=== PATIENT | female | born 1950 | race Caucasian/White ===

== ENCOUNTER 2020-02-09 00:38 | Observation (INO) ==
[2020-02-09] MEDS ORDERED: SODIUM CHLORIDE 0.9% 500 ML IV STA (01:21)
[2020-02-09] MEDS ORDERED: levETIRAcetam 500 MG/5 ML VIAL IV ONE ×2 (01:29→01:30)
[2020-02-09 02:06] LABS: Basophils # 0.1 10*3/uL (0.0-0.2); Eosinophils # 0.1 10*3/uL (0.0-0.87); Eosinophils % 1.7 % (0.00-10.9); Hematocrit 39.1 VOL% (35.7-47.0); Hemoglobin 13.1 GM/DL (12.0-16.0); Immature Granulocytes % 0.3 %; Immature Granulocytes Absolute 0.02 #; Lymphocytes # 1.6 10*3/uL (1.4-4.0); Lymphocytes % 23.1 % (21.3-54.2); Mean Corpuscular HGB Conc 33.5 GM/DL (32-36); Mean Corpuscular Volume 94.9 FL (87-102); Mean Platelet Volume 10.2 FL (9.6-12.0); Monocytes % 8.4 % (1.7-12.7); Neutrophils % 65.5 % (38.7-73.9); Platelet Count 225 T/CUMM (130-400); Red Blood Count 4.12 MC/CUMM (3.8-5.5); Red Cell Distribution Width 12.1 % (9.3-17.3); White Blood Count 7.1 T/CUMM (4-12)
[2020-02-09 02:42] LABS: Bacteria,Urine Occasional /HPF (Few); Bilirubin,Urine Negative (Negative); Blood, Urine Negative (Negative); Glucose,Urine (UA) >=500 mg/dL (Negative); Ketones,Urine 5 mg/dL (Negative); Mucus,Urine Occasional /LPF (Occasional); Nitrite,Urine Negative (Negative); Protein,Urine Negative; RBC,Urine 2 /HPF (0-4); Squamous Epithelial Cell,Urine Occasional /HPF (0-10); Urine Appearance CLEAR (Clear); Urine Color Yellow (Yellow); Urine Specific Gravity 1.012 (1.001-1.035); Urine Urobilinogen < 2.0 EU/DL (0.2-1.0); WBC,Urine 9 /HPF (0-6)
[2020-02-09 02:44] LABS: Barbiturates Screen,Urine Negative (Negative); Benzodiazepines Screen,Urine Negative (Negative); Cannabinoid Screen,Urine Negative (Negative); Opiate Screen,Urine Negative (Negative); Phencyclidine Screen,Urine Negative (Negative)
[2020-02-09 02:55] LABS: Alanine Aminotransferase < 9 U/L (13-56); Albumin 3.6 G/DL (3.4-5.0); Alkaline Phosphatase 27 U/L (45-117); Aspartate Amino Transferase 16 U/L (0-37); Bilirubin,Total < 0.39 MG/DL (0.2-1.0); Blood Urea Nitrogen 12 MG/DL (7-18); Estimated Glom Filtration Rate 75 ML/MIN; Glucose 167 MG/DL (74-106); Total Protein 6.5 G/DL (6.4-8.3)
[2020-02-09 02:56] LABS: Osmolality,Calculated 284.3 MOS/KG (273-304)
[2020-02-09] MEDS ORDERED: cefTRIAXone 1,000 MG in SODIUM CHLORIDE 0.9% 100 ML IV STA (02:59)
[2020-02-09] MEDS ORDERED: ONDANSETRON 4 MG/2 ML VIAL IV PRN (06:38)
[2020-02-09] MEDS ORDERED: SODIUM CHLORIDE 0.9% 1,000 ML IV SCH (06:38)
[2020-02-09] MEDS ORDERED: ACETAMINOPHEN 325 MG TABLET PO PRN (06:38)
[2020-02-09] MEDS ORDERED: DEXTROSE 50% 25 GM/50 ML VIAL IV PRN (06:38)
[2020-02-09] MEDS ORDERED: ALPRAZolam 0.25 MG TABLET PO PRN (07:38)
[2020-02-09] MEDS ORDERED: ERGOCALCIFEROL 50,000 UNIT CAPSULE PO SCH (09:00)
[2020-02-09] MEDS: CALCIUM (CARBONATE) 500 MG TABLET PO SCH (09:33)
[2020-02-09] MEDS: DOCUSATE SODIUM 100 MG CAPSULE PO SCH ×3 (09:33→20:28)
[2020-02-09] MEDS: CITALOPRAM 20 MG TABLET PO SCH (09:33)
[2020-02-09] MEDS: MAGNESIUM CHLORIDE 64 MG TABLET PO SCH (09:33)
[2020-02-09] MEDS: PANTOPRAZOLE 40 MG TABLET PO SCH (09:33)
[2020-02-09] MEDS: CARBIDOPA/LEVODOPA 25-100 MG TABLET PO SCH ×4 (09:34→17:05)
[2020-02-09] MEDS: levETIRAcetam 500 MG TABLET PO SCH (20:28)
[2020-02-09] MEDS ORDERED: traZODone 50 MG TABLET PO PRN (21:00)
[2020-02-09] MEDS ORDERED: CARBIDOPA LEVODOPA PO SCH (21:00)
[2020-02-10 05:38] LABS: Basophils # 0.1 10*3/uL (0.0-0.2); Basophils % 0.9 % (0.0-0.8); Eosinophils # 0.1 10*3/uL (0.0-0.87); Eosinophils % 2.1 % (0.00-10.9); Hematocrit 36.4 VOL% (35.7-47.0); Hemoglobin 12.4 GM/DL (12.0-16.0); Immature Granulocytes % 0.6 %; Immature Granulocytes Absolute 0.03 #; Lymphocytes # 1.6 10*3/uL (1.4-4.0); Lymphocytes % 29.7 % (21.3-54.2); Mean Corpuscular HGB Conc 34.1 GM/DL (32-36); Mean Corpuscular Volume 92.9 FL (87-102); Monocytes % 7.8 % (1.7-12.7); Neutrophils % 58.9 % (38.7-73.9); Platelet Count 209 T/CUMM (130-400); Red Blood Count 3.92 MC/CUMM (3.8-5.5); Red Cell Distribution Width 12.2 % (9.3-17.3); White Blood Count 5.3 T/CUMM (4-12)
[2020-02-10] MEDS: CARBIDOPA/LEVODOPA 25-100 MG TABLET PO SCH ×2 (05:39→08:21)
[2020-02-10] MEDS ORDERED: LEVOTHYROXINE 125 MCG TABLET PO SCH (06:00)
[2020-02-10 06:03] LABS: Alanine Aminotransferase < 9 U/L (13-56); Albumin 3.2 G/DL (3.4-5.0); Alkaline Phosphatase 24 U/L (45-117); Aspartate Amino Transferase 14 U/L (0-37); Blood Urea Nitrogen 8 MG/DL (7-18); Calcium 8.9 MG/DL (8.5-10.1); Estimated Glom Filtration Rate 92 ML/MIN; Glucose 96 MG/DL (74-106); Osmolality,Calculated 280.1 MOS/KG (273-304); Total Protein 6.3 G/DL (6.4-8.3)
[2020-02-10] MEDS ORDERED: cefTRIAXone 1,000 MG in SYRINGE 1 EACH IV SCH (09:00)
[2020-02-10] MEDS: PANTOPRAZOLE 40 MG TABLET PO SCH (09:25)
[2020-02-10] MEDS: MAGNESIUM CHLORIDE 64 MG TABLET PO SCH (09:25)
[2020-02-10] MEDS: CALCIUM (CARBONATE) 500 MG TABLET PO SCH (09:26)
[2020-02-10] MEDS: DOCUSATE SODIUM 100 MG CAPSULE PO SCH (09:26)
[2020-02-10] MEDS: levETIRAcetam 500 MG TABLET PO SCH (09:26)
[2020-02-10] MEDS: CITALOPRAM 20 MG TABLET PO SCH (09:26)
[2020-02-10 12:35] VITALS: BP 118/50
== END 2020-02-10 10:35 | disposition home or self-care (01) ==
LOC: EDBD → EDUNIT# → N.EDINP 00:38 → N.ED 00:38 → N.3E 05:25
PROVIDERS: ADMIT Internal Medicine; ATTEND Internal Medicine

== ENCOUNTER 2020-02-19 12:11 | Inpatient (IN) ==
[2020-02-19 13:16] LABS: Basophils # 0.1 10*3/uL (0.0-0.2); Basophils % 0.5 % (0.0-0.8); Eosinophils # 0.2 10*3/uL (0.0-0.87); Eosinophils % 1.6 % (0.00-10.9); Hematocrit 38.7 VOL% (35.7-47.0); Hemoglobin 13.2 GM/DL (12.0-16.0); Immature Granulocytes % 0.6 %; Immature Granulocytes Absolute 0.06 #; Lymphocytes # 1.2 10*3/uL (1.4-4.0); Lymphocytes % 12.7 % (21.3-54.2); Mean Corpuscular HGB Conc 34.1 GM/DL (32-36); Mean Corpuscular Volume 93.7 FL (87-102); Mean Platelet Volume 10.8 FL (9.6-12.0); Monocytes % 9.8 % (1.7-12.7); Neutrophils % 74.8 % (38.7-73.9); Platelet Count 240 T/CUMM (130-400); Red Blood Count 4.13 MC/CUMM (3.8-5.5); Red Cell Distribution Width 12.1 % (9.3-17.3); White Blood Count 9.3 T/CUMM (4-12)
[2020-02-19 13:22] LABS: Alanine Aminotransferase < 9 U/L (13-56); Albumin 3.4 G/DL (3.4-5.0); Alkaline Phosphatase 26 U/L (45-117); Aspartate Amino Transferase 24 U/L (0-37); Blood Urea Nitrogen 18 MG/DL (7-18); Calcium 9.2 MG/DL (8.5-10.1); Estimated Glom Filtration Rate 90 ML/MIN; Glucose 118 MG/DL (74-106); Osmolality,Calculated 281.4 MOS/KG (273-304); Total Protein 6.8 G/DL (6.4-8.3)
[2020-02-19 13:23] LABS: Bilirubin,Urine Small mg/dL (Negative); Blood, Urine Negative (Negative); Glucose,Urine (UA) Negative (Negative); Hyaline Casts,Urine 6 /LPF (0-3); Ketones,Urine 20 mg/dL (Negative); Mucus,Urine Moderate /LPF (Occasional); Nitrite,Urine Negative (Negative); Protein,Urine 30 MG/DL; RBC,Urine 42 /HPF (0-4); Squamous Epithelial Cell,Urine Occasional /HPF (0-10); Urine Appearance CLEAR (Clear); Urine Color Amber (Yellow); Urine Specific Gravity 1.035 (1.001-1.035); Urine Urobilinogen < 2.0 EU/DL (0.2-1.0); WBC,Urine 3 /HPF (0-6)
[2020-02-19 13:47] LABS: Free T4 (Free Thyroxine) 1.5 NG/DL (0.76-1.46); Thyroid Stimulating Hormone 1.24 uIU/ml (0.358-3.74)
[2020-02-19] MEDS ORDERED: ONDANSETRON 4 MG/2 ML VIAL IV PRN (16:05)
[2020-02-19] MEDS ORDERED: NALOXONE 0.4 MG/ML VIAL IV PRN (16:05)
[2020-02-19] MEDS ORDERED: ALBUTEROL/IPRATROPIUM 3 ML NEB RESP TX PRN (16:05)
[2020-02-19] MEDS ORDERED: ACETAMINOPHEN 325 MG TABLET PO PRN (16:05)
[2020-02-19] MEDS ORDERED: HYDROmorphone PCA 30 MG/30 ML SYRINGE IV SCH (16:30)
[2020-02-19] MEDS ORDERED: traZODone 50 MG TABLET PO PRN (18:04)
[2020-02-19] MEDS: LACTATED RINGERS 1,000 ML IV SCH (18:32)
[2020-02-19] MEDS: CARBIDOPA/LEVODOPA 25-100 MG TABLET PO SCH (18:53)
[2020-02-19] MEDS: NON-FORMULARY MEDICATION (Carbidopa-Levodopa-Entacapone [Stalevo 150] 37.5-150-200 mg tabl PO SCH ×2 (18:53→21:03)
[2020-02-19] MEDS: KETOROLAC 15 MG/1 ML VIAL IV SCH (18:53)
[2020-02-19] MEDS: CITALOPRAM 20 MG TABLET PO SCH (20:55)
[2020-02-19] MEDS: levETIRAcetam 500 MG TABLET PO SCH (20:55)
[2020-02-19] MEDS: CARBIDOPA LEVODOPA PO SCH (20:56)
[2020-02-20] MEDS: KETOROLAC 15 MG/1 ML VIAL IV SCH ×5 (00:02→23:33)
[2020-02-20 05:36] LABS: Basophils # 0.1 10*3/uL (0.0-0.2); Basophils % 0.7 % (0.0-0.8); Eosinophils # 0.3 10*3/uL (0.0-0.87); Eosinophils % 3.7 % (0.00-10.9); Hematocrit 32.9 VOL% (35.7-47.0); Hemoglobin 11.4 GM/DL (12.0-16.0); Immature Granulocytes % 0.5 %; Immature Granulocytes Absolute 0.04 #; Lymphocytes % 13.1 % (21.3-54.2); Mean Corpuscular HGB Conc 34.7 GM/DL (32-36); Mean Corpuscular Volume 94.3 FL (87-102); Mean Platelet Volume 10.4 FL (9.6-12.0); Monocytes % 9.3 % (1.7-12.7); Neutrophils % 72.7 % (38.7-73.9); Platelet Count 226 T/CUMM (130-400); Red Blood Count 3.49 MC/CUMM (3.8-5.5); Red Cell Distribution Width 12.2 % (9.3-17.3); White Blood Count 7.5 T/CUMM (4-12)
[2020-02-20] MEDS: NON-FORMULARY MEDICATION (Carbidopa-Levodopa-Entacapone [Stalevo 150] 37.5-150-200 mg tabl PO SCH ×5 (05:55→21:14)
[2020-02-20] MEDS: CARBIDOPA/LEVODOPA 25-100 MG TABLET PO SCH ×5 (05:55→17:23)
[2020-02-20] MEDS: LEVOTHYROXINE 125 MCG TABLET PO SCH (05:55)
[2020-02-20] MEDS: CALCIUM (CARBONATE) 500 MG TABLET PO SCH (08:56)
[2020-02-20] MEDS: BISACODYL 5 MG TABLET PO PRN (08:56)
[2020-02-20] MEDS: PANTOPRAZOLE 40 MG TABLET PO SCH (08:57)
[2020-02-20] MEDS: MAGNESIUM CHLORIDE 64 MG TABLET PO SCH (08:57)
[2020-02-20] MEDS: levETIRAcetam 500 MG TABLET PO SCH ×2 (08:57→21:14)
[2020-02-20] MEDS ORDERED: HYDROmorphone 2 MG/1 ML VIAL IV PRN (09:49)
[2020-02-20] MEDS ORDERED: ENOXAPARIN 40 MG/0.4 ML SYRINGE SUBCUT SCH (10:11)
[2020-02-20] MEDS: NON-FORMULARY MEDICATION (Linaclotide [Linzess] 72 mcg Capsule) PO SCH (10:32)
[2020-02-20] MEDS: GABAPENTIN 100 MG CAPSULE PO SCH ×2 (15:06→21:14)
[2020-02-20] MEDS: CITALOPRAM 20 MG TABLET PO SCH (21:13)
[2020-02-20] MEDS: CARBIDOPA LEVODOPA PO SCH (21:14)
[2020-02-21] MEDS: LACTATED RINGERS 1,000 ML IV SCH ×2 (03:00→10:39)
[2020-02-21] MEDS: NON-FORMULARY MEDICATION (Carbidopa-Levodopa-Entacapone [Stalevo 150] 37.5-150-200 mg tabl PO SCH ×5 (06:15→21:02)
[2020-02-21] MEDS: CARBIDOPA/LEVODOPA 25-100 MG TABLET PO SCH ×5 (06:16→17:33)
[2020-02-21] MEDS: KETOROLAC 15 MG/1 ML VIAL IV SCH ×4 (06:16→23:31)
[2020-02-21] MEDS: LEVOTHYROXINE 125 MCG TABLET PO SCH (06:28)
[2020-02-21] MEDS: levETIRAcetam 500 MG TABLET PO SCH ×2 (08:35→21:02)
[2020-02-21] MEDS: PANTOPRAZOLE 40 MG TABLET PO SCH (08:36)
[2020-02-21] MEDS: CALCIUM (CARBONATE) 500 MG TABLET PO SCH (08:36)
[2020-02-21] MEDS: MAGNESIUM CHLORIDE 64 MG TABLET PO SCH (08:37)
[2020-02-21] MEDS: GABAPENTIN 100 MG CAPSULE PO SCH ×3 (08:41→21:01)
[2020-02-21] MEDS: NON-FORMULARY MEDICATION (Linaclotide [Linzess] 72 mcg Capsule) PO SCH (09:00)
[2020-02-21 10:27] LABS: PT Patient Result 11.1 SECS (9.8-11.9)
[2020-02-21] MEDS: ALPRAZolam 0.25 MG TABLET PO PRN (15:17)
[2020-02-21] MEDS: CITALOPRAM 20 MG TABLET PO SCH (21:01)
[2020-02-21] MEDS: CARBIDOPA LEVODOPA PO SCH (21:02)
[2020-02-22] MEDS: LEVOTHYROXINE 125 MCG TABLET PO SCH (05:36)
[2020-02-22] MEDS: NON-FORMULARY MEDICATION (Carbidopa-Levodopa-Entacapone [Stalevo 150] 37.5-150-200 mg tabl PO SCH ×6 (05:36→23:32)
[2020-02-22] MEDS: KETOROLAC 15 MG/1 ML VIAL IV SCH ×4 (05:37→23:23)
[2020-02-22] MEDS: CARBIDOPA/LEVODOPA 25-100 MG TABLET PO SCH ×5 (05:37→17:39)
[2020-02-22 06:08] LABS: Basophils # 0.1 10*3/uL (0.0-0.2); Eosinophils # 0.5 10*3/uL (0.0-0.87); Eosinophils % 7.5 % (0.00-10.9); Hematocrit 35.5 VOL% (35.7-47.0); Immature Granulocytes % 0.5 %; Immature Granulocytes Absolute 0.03 #; Lymphocytes # 1.6 10*3/uL (1.4-4.0); Lymphocytes % 26.6 % (21.3-54.2); Mean Corpuscular HGB Conc 33.8 GM/DL (32-36); Mean Corpuscular Volume 94.4 FL (87-102); Mean Platelet Volume 10.1 FL (9.6-12.0); Neutrophils % 56.4 % (38.7-73.9); Platelet Count 236 T/CUMM (130-400); Red Blood Count 3.76 MC/CUMM (3.8-5.5)
[2020-02-22] MEDS: LACTATED RINGERS 1,000 ML IV SCH (07:28)
[2020-02-22] MEDS: BISACODYL 5 MG TABLET PO PRN (08:38)
[2020-02-22] MEDS: GABAPENTIN 100 MG CAPSULE PO SCH ×4 (08:38→23:32)
[2020-02-22] MEDS: MAGNESIUM CHLORIDE 64 MG TABLET PO SCH (08:39)
[2020-02-22] MEDS: PANTOPRAZOLE 40 MG TABLET PO SCH (08:39)
[2020-02-22] MEDS: levETIRAcetam 500 MG TABLET PO SCH ×3 (08:39→23:32)
[2020-02-22] MEDS: CALCIUM (CARBONATE) 500 MG TABLET PO SCH (08:39)
[2020-02-22] MEDS: NON-FORMULARY MEDICATION (Linaclotide [Linzess] 72 mcg Capsule) PO SCH (09:16)
[2020-02-22] MEDS: ALPRAZolam 0.25 MG TABLET PO PRN (17:40)
[2020-02-22] MEDS: CARBIDOPA LEVODOPA PO SCH (20:15)
[2020-02-22] MEDS: CITALOPRAM 20 MG TABLET PO SCH ×2 (21:10→23:32)
[2020-02-22] MEDS ORDERED: HALOPERIDOL 5 MG/ML AMP IM PRN ×2 (22:17→22:33)
[2020-02-23 05:50] LABS: Basophils # 0.1 10*3/uL (0.0-0.2); Basophils % 0.9 % (0.0-0.8); Eosinophils # 0.3 10*3/uL (0.0-0.87); Eosinophils % 4.2 % (0.00-10.9); Hematocrit 34.8 VOL% (35.7-47.0); Hemoglobin 11.7 GM/DL (12.0-16.0); Immature Granulocytes % 0.7 %; Immature Granulocytes Absolute 0.05 #; Lymphocytes # 1.6 10*3/uL (1.4-4.0); Lymphocytes % 21.7 % (21.3-54.2); Mean Corpuscular HGB Conc 33.6 GM/DL (32-36); Mean Corpuscular Volume 94.8 FL (87-102); Mean Platelet Volume 10.1 FL (9.6-12.0); Monocytes % 7.9 % (1.7-12.7); Neutrophils % 64.6 % (38.7-73.9); Platelet Count 244 T/CUMM (130-400); Red Blood Count 3.67 MC/CUMM (3.8-5.5); Red Cell Distribution Width 11.9 % (9.3-17.3); White Blood Count 7.4 T/CUMM (4-12)
[2020-02-23] MEDS: KETOROLAC 15 MG/1 ML VIAL IV SCH ×3 (06:04→18:25)
[2020-02-23] MEDS: LEVOTHYROXINE 125 MCG TABLET PO SCH ×2 (06:04→06:24)
[2020-02-23] MEDS: CARBIDOPA/LEVODOPA 25-100 MG TABLET PO SCH ×5 (06:08→18:25)
[2020-02-23] MEDS: NON-FORMULARY MEDICATION (Carbidopa-Levodopa-Entacapone [Stalevo 150] 37.5-150-200 mg tabl PO SCH ×5 (06:08→21:55)
[2020-02-23] MEDS: levETIRAcetam 500 MG TABLET PO SCH ×2 (08:06→21:55)
[2020-02-23] MEDS: LOSARTAN 25 MG TABLET PO SCH (09:40)
[2020-02-23] MEDS: GABAPENTIN 100 MG CAPSULE PO SCH ×3 (09:40→21:55)
[2020-02-23] MEDS: CALCIUM (CARBONATE) 500 MG TABLET PO SCH (09:40)
[2020-02-23] MEDS: PANTOPRAZOLE 40 MG TABLET PO SCH (09:40)
[2020-02-23] MEDS: MAGNESIUM CHLORIDE 64 MG TABLET PO SCH (09:40)
[2020-02-23] MEDS: NON-FORMULARY MEDICATION (Linaclotide [Linzess] 72 mcg Capsule) PO SCH (09:41)
[2020-02-23] MEDS: NON-FORMULARY MEDICATION PO PRN (11:09)
[2020-02-23 11:31] LABS: Calcium 8.8 MG/DL (8.5-10.1); Osmolality,Calculated 279.5 MOS/KG (273-304)
[2020-02-23 12:21] LABS: Alanine Aminotransferase < 9 U/L (13-56); Albumin 2.8 G/DL (3.4-5.0); Alkaline Phosphatase 24 U/L (45-117); Aspartate Amino Transferase 22 U/L (0-37); Blood Urea Nitrogen 14 MG/DL (7-18); Estimated Glom Filtration Rate 75 ML/MIN; Glucose 132 MG/DL (74-106); Osmolality,Calculated 279.5 MOS/KG (273-304); Total Protein 6.5 G/DL (6.4-8.3)
[2020-02-23] MEDS: LACTATED RINGERS 1,000 ML IV SCH ×3 (18:43→23:03)
[2020-02-23] MEDS: CARBIDOPA LEVODOPA PO SCH (20:32)
[2020-02-23] MEDS: CITALOPRAM 20 MG TABLET PO SCH (21:55)
[2020-02-24] MEDS: KETOROLAC 15 MG/1 ML VIAL IV SCH ×3 (01:47→12:15)
[2020-02-24] MEDS: CARBIDOPA/LEVODOPA 25-100 MG TABLET PO SCH ×5 (05:24→17:13)
[2020-02-24 05:36] LABS: Basophils # 0.1 10*3/uL (0.0-0.2); Basophils % 0.9 % (0.0-0.8); Eosinophils # 0.3 10*3/uL (0.0-0.87); Eosinophils % 4.3 % (0.00-10.9); Hematocrit 35.4 VOL% (35.7-47.0); Hemoglobin 11.9 GM/DL (12.0-16.0); Immature Granulocytes % 0.7 %; Immature Granulocytes Absolute 0.05 #; Lymphocytes # 1.8 10*3/uL (1.4-4.0); Lymphocytes % 23.4 % (21.3-54.2); Mean Corpuscular HGB Conc 33.6 GM/DL (32-36); Mean Corpuscular Volume 95.2 FL (87-102); Mean Platelet Volume 9.9 FL (9.6-12.0); Monocytes % 7.7 % (1.7-12.7); Platelet Count 269 T/CUMM (130-400); Red Blood Count 3.72 MC/CUMM (3.8-5.5); Red Cell Distribution Width 11.9 % (9.3-17.3); White Blood Count 7.7 T/CUMM (4-12)
[2020-02-24] MEDS: NON-FORMULARY MEDICATION (Carbidopa-Levodopa-Entacapone [Stalevo 150] 37.5-150-200 mg tabl PO SCH ×4 (06:00→18:27)
[2020-02-24] MEDS: LEVOTHYROXINE 125 MCG TABLET PO SCH (06:34)
[2020-02-24] MEDS: LOSARTAN 25 MG TABLET PO SCH (09:30)
[2020-02-24] MEDS: GABAPENTIN 100 MG CAPSULE PO SCH ×2 (09:31→15:33)
[2020-02-24] MEDS: CALCIUM (CARBONATE) 500 MG TABLET PO SCH (09:31)
[2020-02-24] MEDS: NON-FORMULARY MEDICATION (Linaclotide [Linzess] 72 mcg Capsule) PO SCH (09:31)
[2020-02-24] MEDS: PANTOPRAZOLE 40 MG TABLET PO SCH (09:32)
[2020-02-24] MEDS: MAGNESIUM CHLORIDE 64 MG TABLET PO SCH (09:32)
[2020-02-24] MEDS: levETIRAcetam 500 MG TABLET PO SCH (09:42)
[2020-02-24] MEDS: LACTATED RINGERS 1,000 ML IV SCH (13:00)
[2020-02-24] MEDS: ALPRAZolam 0.25 MG TABLET PO PRN (14:31)
[2020-02-24] MEDS: NON-FORMULARY MEDICATION PO PRN (15:18)
[2020-02-24 16:22] VITALS: BP 144/84
== END 2020-02-24 18:58 | disposition home health service (06) | DRG 200 ==
LOC: N.ED 12:11 → N.EDINP 12:11 → N.3E 17:54
PROVIDERS: ADMIT Student in an Organized Health Care Education/Training Program; ATTEND Student in an Organized Health Care Education/Training Program